=== PATIENT | female | born 1970 | race African-American/Black ===

== ENCOUNTER 2019-04-12 14:54 | Emergency (ER) | payer OTHER ==
--- NOTE | 2019-04-12 15:00 | PDOC ---
Rapid Medical Evaluation Time Seen by Provider: 04/12/19 14:58 Medical Evaluation: Allergies Allergy/AdvReac Type Severity Reaction Status Date / Time Penicillins Allergy Intermediate Hives Verified 10/18/13 08:40 04/12/19 14:59 Pt c/o: rash from bugs or chemicals used x 3 weeks , + itching Pt on brief exam: noted scattered papular rash to arms Pt ordered for: none Pt to proceed to the ED Discharge Disposition - Diagnosis Rash, Scabies - Discharge Dispostion Disposition: HOME Condition at time of disposition: Stable - Prescriptions Prescriptions: Permethrin 5% Topical Cream [Elimite -] 1 applic TP ONCE #1 tube Permethrin 5% Topical Cream [Elimite -] 1 applic TP ONCE #1 tube - Referrals Referrals: Katharina Daley MD [Staff Physician] - - Patient Instructions Printed Discharge Instructions: Scabies, DI for Scabies Additional Instructions: Please use the Elimite soap as directed and return to the emergency room for worsening symptoms. Repeat the process in 7 days. Without fail please follow- up with dermatology in 2 to 3 days for further evaluation and treatment options - Post Discharge Activity
[2019-04-12 15:02] VITALS: BP 145/89; PULSE 71; TEMP 98.1; BMI 30.7
--- NOTE | 2019-04-12 15:26 | PDOC ---
History of Present Illness - General Chief Complaint: Rash Stated Complaint: ALLERGY REACTIONS Time Seen by Provider: 04/12/19 14:58 - History of Present Illness Initial Comments: 04/12/19 15:24 48-year-old female presents for evaluation of rash x3 weeks 04/12/19 15:24 Past History - Past Medical History Allergies/Adverse Reactions: Allergies Allergy/AdvReac Type Severity Reaction Status Date / Time Penicillins Allergy Intermediate Hives Verified 04/12/19 15:02 Home Medications: Ambulatory Orders Citalopram Hydrobromide [Celexa -] 10 mg PO DAILY 10/18/13 LORazepam [Ativan -] 1 mg PO HS 10/18/13 Olanzapine [Zyprexa] 10 mg PO HS 10/18/13 Zolpidem Tartrate [Ambien] 10 mg PO HS 11/30/13 levoFLOXacin [Levaquin -] 500 mg PO DAILY #14 tablet 12/11/13 Permethrin 5% Topical Cream [Elimite -] 1 applic TP ONCE #1 tube 04/12/19 Anemia: No Asthma: No Cancer: No Cardiac Disorders: No CVA: No COPD: No CHF: No Dementia: No Diabetes: No GI Disorders: No Disorders: No HTN: No Hypercholesterolemia: No Liver Disease: No Psychiatric Problems: Yes Seizures: No Thyroid Disease: No - Surgical History Abdominal Surgery: Yes (uterine) Appendectomy: No Cardiac Surgery: No Cholecystectomy: No Lung Surgery: No Neurologic Surgery: No Orthopedic Surgery: No - Psycho Social/Smoking Cessation Hx Smoking History: Current every day smoker Have you smoked in the past 12 months: Yes Number of Cigarettes Smoked Daily: 5 Information on smoking cessation initiated: Yes 'Breaking Loose' booklet given: 10/18/13 Hx Alcohol Use: No Drug/Substance Use Hx: No Substance Use Type: None Hx Substance Use Treatment: No Review of Systems - Review of Systems Constitutional: No: Fever Integumentary: Yes: Pruritus, Rash *Physical Exam - Vital Signs Last Vital Signs Temp Pulse Resp BP Pulse Ox 98.1 F 71 19 145/89 99 04/12/19 14:59 04/12/19 14:59 04/12/19 14:59 04/12/19 14:59 04/12/19 14:59 - Physical Exam Comments: 04/12/19 15:25 There are discrete lesions which appear to be pustules on bilateral upper extremities with burrowing on the dorsum of the hands the same lesions appear on the anterior aspect of the chest Medical Decision Making - Medical Decision Making 04/12/19 15:25 Elimite for scabies follow-up with dermatology Discharge - Discharge Information Problems reviewed: Yes Clinical Impression/Diagnosis: Rash, Scabies Condition: Stable Disposition: HOME - Admission No - Additional Discharge Information Prescriptions: Permethrin 5% Topical Cream [Elimite -] 1 applic TP ONCE #1 tube - Follow up/Referral Referrals: Katharina Daley MD [Staff Physician] - - Patient Discharge Instructions Patient Printed Discharge Instructions: Scabies, DI for Scabies Additional Instructions: Please use the Elimite soap as directed and return to the emergency room for worsening symptoms. Repeat the process in 7 days. Without fail please follow- up with dermatology in 2 to 3 days for further evaluation and treatment options - Post Discharge Activity
== END 2019-04-12 15:37 | disposition home or self-care (01) ==
LOC: JERFT 14:54
DX: B86 Scabies (principal); R21 Rash and other nonspecific skin eruption; F17.210 Nicotine dependence, cigarettes, uncomplicated; Z88.0 Allergy status to penicillin; F99 Mental disorder, not otherwise specified
CPT/HCPCS: 99281-25